=== PATIENT | female | born 1940 | race Caucasian/White ===

== ENCOUNTER 2017-01-14 12:38 | Emergency (ER) | payer MEDICARE ==
[~2017-01-14] VITALS: Ht 157.5 cm; Wt 67.7 kg
[~2017-01-14 12:38] MED LIST: ASCO100089 PO; CHOL200025 PO; CITA20TA11 PO; LEVO125T6 PO; MV-M1CAP15 PO; TIZA4CAP8 PO; TRIA1TAB5 PO; [UNRECOGNIZED DRUG - OTHER] PO
[2017-01-14 12:57] VITALS: BP 166/100; RESP 17; O2SAT 98
--- NOTE | 2017-01-14 15:15 | ED.REPORT ---
HPI-Ear Pain/Problem/FB Date of Service Jan 14, 2017 ED Provider: Mark Gamez PA-C Heydi is otherwise healthy 76-year-old female patient with a chief complaint of right ear pain. She reports she first noted upon arising this morning. Admits to slight rhinorrhea, congestion, sore throat. Denies other symptoms, fever, Q-tip use, discharge, swimming. Nursing Notes Stated Complaint: RT EAR PAIN Chief Complaint: ENT & Mouth Nursing Notes Reviewed: Yes Allergies: Coded Allergies: ether (Verified Allergy, Unknown, 01/14/17) Scheduled ([Natozines]) 195 MG PO DAILY Ascorbic Acid (Vitamin C) 1,000 Mg Tab.chew 1,000 MG PO DAILY Cholecalciferol (Vitamin D3) (Vitamin D3) 2,000 Unit Tablet 2,000 UNIT PO DAILY Citalopram (Citalopram) 20 Mg Tablet 20 MG PO DAILY Levothyroxine (Levothyroxine) 125 Mcg Tablet 125 MCG PO DAILY Mv-Mn/FA/Vit K/Lycop/Lut/Coq10 (Daily Multivitamin Capsule) 200-100MCG Capsule 1 EACH PO DAILY Tizanidine (Tizanidine) 4 Mg Capsule 4 MG PO HS Triamterene/HCTZ 75-50 mg (Triamterene/HCTZ 75-50 mg) 1 Each Tablet 1 TABLET PO DAILY General Time Seen by MD: 13:56 Chief Complaint Ear problem right Past Medical History Past Medical History Denies Review of Systems Negative unless stated otherwise in history of present illness. Physical Exam General: Well appearing, well developed, well nourished, no acute distress. Head: Atraumatic, normocephalic. No mastoid tenderness. Eyes: No scleral icterus or injection. No discharge. PERRL. Vision grossly intact. Ears: Pinna and tragus nontender with manipulation. External auditory canals are obstructed with cerumen bilaterally. Negative discharge. Hearing grossly intact. Negative mastoid tenderness. Nose: Symmetrical, nares patent without discharge. No frontal or maxillary sinus tenderness. Mouth/pharynx: normal dentition, mucus membranes moist. Tonsils 2+ and symmetrical, uvula midline. Pharynx noninjected, no cobblestoning or discharge. Voice clear. Neck: No tenderness or lymphadenopathy. Trachea midline. Respiratory: No respiratory distress, no increased work of breathing. Speaks in complete sentences. Skin: Warm and dry. Neurological: Grossly nonfocal. Psychological: alert and oriented. Speech appropriate, linear and logical. Behavior appropriate. Initial Vital Signs Vital Signs (First) Date Time Temp Pulse Resp B/P Pulse Ox O2 Delivery O2 Flow Rate FiO2 01/14/17 12:57 37 63 17 166/100 98 Room Air Elevated blood pressure Procedures Foreign Body Removal - Ear Procedure Performed by: Allied health pract Consent / Setup: Consent from patient, Hand hygiene observed Foreign Body / # / Location: Cerumen Anesthesia / Instrument: Removed with loop Removal of FB: Partial Post-Procedure / Complications: Tolerated procedure well, Patient stable Re-Eval/Medical Decision Med Decision/Clinical Course Otherwise healthy 76-year-old female presents with chief complaint of right ear pain first noted upon arising this morning. Admits mild rhinorrhea, congestion , sore throat, muffled hearing. Denies other symptoms. Physical examination reveals cerumen impaction. Attempted disimpaction in the emergency department, but found the cerumen to be quite dense. Some cerumen was removed, the patient reports some improvement. Advised ceruminolytic, primary care follow-up. I feel that otitis media, externa or mastoiditis is unlikely in this case. She is stable and safe to discharge. Advised regarding primary care follow-up, provided emergency return precautions. Patient verbalized understanding of, and consent to, the plan. Discharge & Departure Primary Impression: Impacted cerumen of right ear Discharge Condition All VS Reviewed: Yes Condition: Improved Additional Instructions: Evaluation for right ear pain in the emergency department consists of history and physical examination which reveals that her right ear canal is impacted with earwax. The left ear canal is obstructed as well. We have attempted to remove the earwax here in the emergency department, but it is quite firm and I believe that further attempts would be very uncomfortable. We recommend [id number] Cerumenex, to be placed inferior daily for the next 5-6 days. When showering, allow water to flow through the year. This will soften the wax. Follow up with your primary care provider after that to have the wax fully removed. Return to the emergency Department for any new or worsening symptoms including increasing pain, fever, discharge from the ear, severe headache. Referrals: OTHER,PHYSICIAN (PCP) Angel Johnson EDSupervising Provider for APC: Valeria Benites MD, Seth PA-C Jan 14, 2017 15:15
== END 2017-01-14 15:23 ==
LOC: SED 12:38
DX: H61.21 Impacted cerumen, right ear (principal); Z79.899 Other long term (current) drug therapy